=== PATIENT | male | born 1965 | race Caucasian/White ===

== ENCOUNTER 2021-09-04 09:42 | Day surgery (SDC) | payer BC ==
[2021-09-02 13:21] LABS: Potassium 5.1 mmol/L (3.5-5.1)
--- NOTE | 2021-09-03 07:53 | EKG ---
Test Date: 2021-09-02 Test Time: 11:49:01 Dish Technician: CATRACHO MEASUREMENT RESULTS: Intervals: Rate: 58 NJ: 150 QRSD: 92 QT: 384 QTc: 376 [place]: P: 69 NJ: 150 QRS: -64 T: 56 INTERPRETIVE STATEMENTS: Sinus bradycardia Left anterior fascicular block Abnormal ECG No previous ECG available for comparison Electronically Signed On 09-03-21 07:52:52 CDT by Emeterio Valerio
[2021-09-04] MEDS ORDERED: Ringers Lactate 1,000 ML IV ONE ×2 (09:52→14:01)
[2021-09-04] MEDS ORDERED: CEFAZOLIN/SWI 2gm 2 GM/20 ML SYR ONE (09:52)
[2021-09-04] MEDS ORDERED: propofoL 200 MG/20 ML VIAL IV ONE (13:27)
[2021-09-04] MEDS ORDERED: MIDAZOLAM HCL 2 MG/2 ML INJ ONE (13:27)
[2021-09-04] MEDS ORDERED: LIDOCAINE 1% MPF 5 ML VIAL ONE (13:27)
[2021-09-04] MEDS ORDERED: FENTANYL CITR 100 MCG/2 ML ONE (13:27)
[2021-09-04] MEDS ORDERED: BUPIVACAINE 0.25% PF 10 ML VIAL ONE (13:46)
[2021-09-04] MEDS ORDERED: dexAMETHasone 10 MG/ML VIAL ONE (14:17)
[2021-09-04] MEDS ORDERED: KETOROLAC 30 MG/ML INJ ONE (14:17)
--- NOTE | 2021-09-04 15:13 | P.OP ---
Preoperative diagnosis: LEFT inguinal Hernia Postoperative diagnosis: LEFT inguinal Hernia Primary procedure: Open LEFT inguinal Hernia repair with mesh Anesthesia: GETA + Local Estimated blood loss: <2cc Specimen: cord lipoma Findings: indirect inguinal hernia - reducible Complications: None Implants: Bard Perfix Hernia plug and patch - medium Transferred to: Recovery Room Condition: Good
[2021-09-04] MEDS ORDERED: ONDANSETRON 4 MG/2 ML VIAL ONE (15:14)
[2021-09-04 16:50] VITALS: BP 124/62; TEMP 97.4
[2021-09-04 17:06] VITALS: O2SAT 97
--- NOTE | 2021-09-05 02:57 | OP ---
Date of Procedure: 09/04/2021 Surgeon: Mina Regalado MD, Preoperative Diagnosis: Left inguinal hernia. Postoperative Diagnosis: Left inguinal hernia. Procedure Performed: Open left inguinal hernia repair with mesh. Anesthesia: General endotracheal plus local with 0.25% Marcaine. Estimated Blood Loss: Less than 2 cc. Specimen: Cord lipoma. Findings: Indirect inguinal hernia, which is reducible. Complications: None. Implants: Bard PerFix hernia plug and patch hernia repair system medium size. Disposition: Patient was transferred to the recovery room in good condition. Procedure In Detail: After informed consent was obtained, the patient was brought to the operating r oom, prepped and draped in the usual sterile fashion. After adequate anesthesia was achieved, an are a of the left inguinal region was then anesthetized with 0.25% Marcaine, sharply incised, and dissect ion continued using electrocautery down through the Camper fat and Eleanor fascia to expose the auto phone installer al oblique aponeurosis. External oblique aponeurosis was opened at this point sharply with a 15 blad e. I then opened in its entirety distally and proximally using Metzenbaum scissors, protecting the i lioinguinal nerve throughout. I then dissected down to expose the spermatic cord structures. This w as encircled with a [place] drain. At this point, I dissected down to the deep inguinal ring and ult imately found that there was an indirect inguinal hernia emanating from the medial aspect of this are a. I dissected the spermatic cord structures free from the hernia sac at this point and removed the cord lipoma, this was sent for pathologic examination. After I completely reduced the hernia sac int o the preperitoneal space and imbricated the sac, I then brought a medium-sized Bard PerFix plug into the field after hydration and placed it in the preperitoneal space. At this point, it was secured c ircumferentially around with 0 PDS suture with 3 sutures circumferentially around with good mesh plac ement. At this point, I sized the hernia patch appropriately and after sizing the patch appropriatel y and trimming it, I secured it to the pubic tubercle on medial aspect and then formally on the media l and lateral shelving edges of the internal oblique aponeurosis and the underside of the inguinal li gament. After this was secured using 2-0 PDS suture, I then irrigated the area copiously and dried i t up until it was completely dried with laparotomy pads. At this point, I then closed the external o blique aponeurosis in a running fashion with a 3-0 Vicryl suture with good apposition of the tissues. I then closed the deep dermal layer with same set 3-0 Vicryl suture in an interrupted fashion. The skin was closed with 4-0 Monocryl in a running fashion, Dermabond was placed over the top. The noman ent tolerated the procedure well without evidence of complication, transferred to PACU in good condit ion. All counts were correct at the end of the case. TANG/KIP Voice ID: [id number] Report ID: [id number]
== END 2021-09-04 17:20 | disposition home or self-care (01) ==
LOC: OR 09:42
PROVIDERS: ATTEND Surgery
PROC: 0YU60JZ Supplement Left Inguinal Region with Synthetic Substitute, Open Approach (ICD-10-PCS; principal; 2021-09-04 12:15)
DX: K40.90 Unilateral inguinal hernia, without obstruction or gangrene, not specified as recurrent (principal); Z20.822 Contact with and (suspected) exposure to COVID-19
CPT/HCPCS: 93005; 80048; 36415; 88302; 49505; U0003; J2704; J2250; J3010; J1100; J0690; J7120 ×2; J2405

== ENCOUNTER 2024-05-26 06:44 | Emergency (ER) | payer BC ==
[2024-05-26] MEDS ORDERED: FAMOTIDINE 20 MG/2 ML VIAL IV ONE (07:03)
[2024-05-26] MEDS ORDERED: FOLIC ACID 5 MG/ML VIAL ONE (07:03)
[2024-05-26] MEDS ORDERED: ASPIRIN 81 MG CHEWABLE TABLET ONE (07:03)
[2024-05-26] MEDS ORDERED: NA CHLORIDE 0.9% 1,000 ML ONE (07:04)
[2024-05-26 07:21] LABS: Absolute Eosinophils 0.1 K/uL (0-0.5); Absolute Lymphocytes (CBC) 1.9 K/uL (0.7-4.9); Absolute Monocytes 0.7 K/uL (0.1-1.3); Absolute Neutrophil 5.7 K/uL (1.8-8.0); Basophils % 0.5 % (0-1.3); Eosinophils % 1.4 % (0-4.4); Hematocrit 44.3 % (39.6-49.0); Hemoglobin 15.2 g/dL (13.6-17.9); Lymphocytes % 22.1 % (15.3-44.8); MCHC 34.3 g/dL (32.0-36.0); MCV 87.4 fL (80-100); MPV 8.3 fL (7.6-11.3); Monocytes % 8.2 % (3.3-12.3); Neutrophils % 67.8 % (41.7-73.7); Platelets 273 thou/uL (152-406); RBC Red Blood Cell Count 5.08 M/uL (4.33-5.43); Red Cell Distribution Width 13.8 % (12.1-15.2)
[2024-05-26 07:27] LABS: PT Prothrombin Time 11.9 SECONDS (9.4-12.5); Protime INR 1.13
[2024-05-26 07:37] LABS: ALT/SGPT 34 U/L (16-61); AST/SGOT 20 U/L (15-37); Albumin 3.8 g/dL (3.4-5.0); Albumin/Globulin Ratio 1.2 (1.1-1.8); Alkaline Phosphatase 43 U/L (45-117); Anion Gap 5.9 mEq/L (5.0-15.0); BUN Blood Urea Nitrogen 17 mg/dL (7-18); Bicarbonate 28 mEq/L (21-32); Bilirubin Direct 0.2 mg/dL (0-0.2); Bilirubin Indirect, Calculated 0.5 mg/dL (0.2-0.8); Bilirubin Total 0.7 mg/dL (0.2-1.0); Globulin 3.2 g/dL (2.3-3.5); Glomerular Filtration Rate 87 ml/min (=/>90); Glucose Level 114 mg/dL (74-106); Magnesium 2.2 mg/dL (1.6-2.4); NT PRO-BNP 56 pg/mL (<125); Potassium 3.9 mEq/L (3.5-5.1); Sodium Level 137 mEq/L (136-145); Troponin High Sensitivity 12.2 pg/mL (<58.9)
[2024-05-26 07:38] LABS: C-Reactive Protein < 2.90 mg/L (<3.00)
--- NOTE | 2024-05-26 07:41 | RAD REPORT ---
EXAM: CT brain without contrast HISTORY: Syncope. COMPARISON: None TECHNIQUE: Multiple contiguous axial images were obtained and a CT of the brain without contrast. Sagittal and coronal reformats were performed. Automated exposure control, adjustment of the mA and/or kV according to patient size, and/or itera tive reconstruction. Unless otherwise specified, incidental findings do not require dedicated imaging follow-u FINDINGS: An intracranial bleed is not seen Ventricles are normal caliber No extra-axial fluid collection noted No significant hypodensity within the brain No fluid within the visualized sinuses or mastoids noted. IMPRESSION: No acute intracranial abnormality noted. If the patient's symptoms persist MRI of the brain would be recommended. from the emergency room was notified at 7:30 AM May 26, 2024
[2024-05-26 07:43] LABS: SARS-CoV-2 Antigen CONTROL BLUE LINE VIS/BG OK; SARS-CoV-2 Antigen Rapid Res Negative (Negative)
[2024-05-26] MEDS ORDERED: MECLIZINE HCL 12.5 MG TAB ONE (07:44)
[2024-05-26] MEDS ORDERED: ONDANSETRON 4 MG/2 ML VIAL ONE (07:44)
--- NOTE | 2024-05-26 07:54 | RAD REPORT ---
EXAMINATION: CTA HEAD CLINICAL INDICATION: Syncope TECHNIQUE: Axial CT images were obtained through the head after 100 cc Isovue-370 intravenous contras t utilizing angiographic protocol with 3D post-processing (maximum intensity projection images, volume rendered images and/or shaded surface rendered images). One or more of the following dose red uction techniques were used: Automated exposure control, adjustment of the mA and/or kV according to patient size, and/or iterative reconstruction. Unless otherwise specified, incidental findings do not require dedicated imaging follow-up. COMPARISON: None FINDINGS: Distal internal carotid, anterior cerebral, middle cerebral and posterior cerebral arteries do not d emonstrate a significant stenosis The basilar artery is small origin right and left posterior cerebral arteries An aneurysm not noted. 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
--- NOTE | 2024-05-26 07:55 | RAD REPORT ---
EXAMINATION: Neck Angio CLINICAL INDICATION: Syncope TECHNIQUE: Axial CT images were obtained from the aortic arch to the skull base after intravenous adm inistration of 100 cc Isovue-370 utilizing angiographic protocol. Multiplanar reformats, as well as 3D post-processing (maximum intensity projection images, volume rendered images and/or shaded surface rendered images) were generated and reviewed. One or more of the following dose reduction techniques were used: Automated exposure control, adjustment of the mA and/or kV according to patient size, and/or iterative reconstruction. Unless otherwise specified, incidental findings do not require dedicated imaging follow-up. COMPARISON: No prior exam. FINDINGS: The visualized aortic arch and great vessels do not demonstrate a significant abnormality Common carotid, internal carotid and external carotid arteries bilaterally unremarkable Vertebral arteries are somewhat small. No abnormality noted. No significant stenosis noted. A dissection is not seen. Methods for NASCET criteria: Mild stenosis, 0% to 49%; Moderate stenosis 50% to 69%; Severe stenosis, 70% to 99% IMPRESSION: Bilateral hypoplasia vertebral arteries No acute vascular abnormality displayed
--- NOTE | 2024-05-26 07:56 | RAD REPORT ---
Procedure: Chest Single View HISTORY: Cough COMPARISON: none FINDINGS: The lungs appear clear of acute infiltrate. No significant pleural effusion noted. The heart is normal size. Old right clavicular fracture IMPRESSION: No acute abnormality is displayed.
--- NOTE | 2024-05-26 09:12 | ER ---
Nurse's Notes [facility] Name: Satya Marquis Age: 59 yrs Sex: Male : 1965 Arrival Date: 05/26/2024 Time: 06:44 Bed 6 Private MD: Diagnosis: Benign paroxysmal vertigo, unspecified ear Presentation: 05/26 06:52 Chief complaint: EMS states: was toned out for syncopal episode. when ems arrived on al5 seen, patient was found unresponsive and in the prone position. patient was experiencing weakness with ems. patient admits to dizziness prior to the syncopal episode. Coronavirus screen: cough unrelated to allergies. Ebola Screen: No symptoms or risks identified at this time. No acute neurological deficit is noted. The patients blood glucose was checked before arriving to the hospital and was found to be normal. Initial Sepsis Screen: Does the patient meet any 2 criteria? No. Patient's initial sepsis screen is negative. Does the patient have a suspected source of infection? No. Patient's initial sepsis screen is negative. Risk Assessment: Do you want to hurt yourself or someone else? Patient reports no desire to harm self or others. Onset of symptoms was May 26, 2024. Care prior to arrival: IV initiated. 20 GA, in the right antecubital area, Glucose check: 139. 06:52 Method Of Arrival: EMS: [facility] al5 06:52 Acuity: MARS 3 al5 Triage Assessment: 07:00 The onset of the patients symptoms was May 26, 2024 at 04:00. General: Appears in al5 no apparent distress. comfortable, Behavior is calm, cooperative. Pain: Denies pain. EENT: No signs and/or symptoms were reported regarding the EENT system. Neuro: Level of Consciousness is awake, alert, obeys commands, Oriented to person, place, time, situation, Reports dizziness, prior to syncopal episode. Neuro: Public Affairs Director are equal bilaterally Moves all extremities. Full function Gait is steady, Speech is normal, Facial symmetry appears normal. Cardiovascular: Reports syncope, Capillary refill < 3 seconds Patient's skin is warm and dry. Respiratory: Airway is patent Respiratory effort is even, unlabored, Respiratory pattern is regular, symmetrical. GI: No signs and/or symptoms were reported involving the gastrointestinal system. Abdomen is flat, non-distended. : No signs and/or symptoms were reported regarding the genitourinary system. Derm: Skin is intact, is healthy with good turgor, Skin is pink, warm \\T\\ dry. normal. Musculoskeletal: No signs and/or symptoms reported regarding the musculoskeletal system. Stroke Activation: Physician: ED Attending; Name: ; Notified At: ; Arrived At: Physician: Mid-Level Provider; Name: ; Notified At: ; Arrived At: Physician: [not used]; Name: ; Notified At: ; Arrived At: Physician: [not used]; Name: ; Notified At: ; Arrived At: Physician: [not used]; Name: ; Notified At: ; Arrived At: 06:52 n/a al5 Historical: - Allergies: 06:58 No Known Allergies; macario 06:58 No Known Allergies; al5 - PMHx: 06:58 Hypercholesterolemia; al5 - PSHx: 06:58 Appendectomy; hernia repair; al5 - Immunization history:: Adult Immunizations up to date. - Infectious Disease History:: Denies. - Family history:: not pertinent. - Social history:: Smoking status: Patient denies any tobacco usage or history of. Screenin:03 [facility] ED Fall Risk Assessment (Adult) History of falling in the last 3 months, al5 including since admission No falls in past 3 months (0 pts) Confusion or Disorientation No (0 pts) Intoxicated or Sedated No (0 pts) Impaired Gait No (0 pts) Mobility Assist Device Used No (0 pt) Altered Elimination No (0 pt) Score/Fall Risk Level 0 - 2 = Low Risk Oriented to surroundings, Maintained a safe environment, Hourly rounding (assess needs \\T\\ fall precautionary measures) done. Abuse screen: Denies threats or abuse. Denies injuries from another. Nutritional screening: No deficits noted. Tuberculosis screening: No symptoms or risk factors identified. Assessment: 07:02 VAN Scoring: Arm Drift: Patients demonstrates NO arm weakness. Patient is VAN Negative. al5 Visual Disturbance: No visual disturbance noted. Aphasia: No aphasia noted. Neglect: No neglect noted. V[place]ant Swallow Protocol Exclusion Criteria: Exclusion Criteria Result: Proceed Brief Cognitive Screen What is your name? Normal, Where are you right now? Normal, What year is it? Normal. Oral Mechanism Examination Facial Symmetry: Normal, Motion: Normal, Lip Closure: Normal, Oral Mechanism Result: Normal. [place] Swallow Protocol 3 oz Water Swallow Challenge: Pt able to drink all water without stopping, coughing, choking or throat clearing: Yes Result: PASS Notified: Osmar Mera MD. TNKase (Tenecteplase) Screening: Not Applicable. Reassessment: see triage assessment. 07:03 General: Appears comfortable, Behavior is calm, cooperative. Pain: Denies pain. Neuro: aa5 Level of Consciousness is awake, alert, obeys commands, Oriented to person, place, time, situation, Public Affairs Director are equal bilaterally Moves all extremities. Speech is normal, Facial symmetry appears normal, Reports mild dizziness at this time. Pt states "I remember I woke up with the room spinning and I got up and I just remember collapsing", pt's son states "I heard a noise in the hallway and he just passed out in my arms" . Cardiovascular: Heart tones S1 S2 present Rhythm is sinus rhythm. Respiratory: Reports slight cough since yesterday. Airway is patent Respiratory effort is even, unlabored, Respiratory pattern is regular, symmetrical. GI: Abdomen is round non-distended, Bowel sounds present X 4 quads. Abd is soft and non tender X 4 quads. Patient currently denies nausea, vomiting. : No signs and/or symptoms were reported regarding the genitourinary system. EENT: Reports sore throat since yesterday . Derm: Skin is pink, warm \\T\\ dry. Musculoskeletal: Range of motion: intact in all extremities. 07:47 Reassessment: Patient is alert, oriented x 3, equal unlabored respirations, skin aa5 warm/dry/pink. 08:30 Reassessment: Patient is alert, oriented x 3, equal unlabored respirations, skin aa5 warm/dry/pink. Patient states feeling better. 09:00 Reassessment: Patient is alert, oriented x 3, equal unlabored respirations, skin aa5 warm/dry/pink. MD at bedside . Vital Signs: 06:52 BP 156 / 92; Pulse 65; Resp 16; Temp 97.5; Pulse Ox 100% on R/A; Weight 83.91 kg; al5 Height 5 ft. 7 in. ; Pain 0/10; 07:50 BP 133 / 72; Pulse 54; Resp 16 S; Pulse Ox 96% on R/A; aa5 08:55 BP 125 / 74; Pulse 55; Resp 18 S; Pulse Ox 99% on R/A; aa5 09:07 BP 120 / 79; Pulse 54; Resp 16; Pulse Ox 99% ; ko1 06:52 Body Mass Index 28.97 (83.91 kg, 170.18 cm) al5 06:52 Pain Scale: Adult al5 NIH Stroke Scale Scores: 06:54 NIHSS Score: 0 macario 07:02 NIHSS Score: 0 al5 ED Course: 06:45 Patient arrived in ED. jj6 06:46 Osmar Mera MD is Attending Physician. [facility] 06:55 Triage completed. al5 06:59 Arm band placed on right wrist. Patient placed in the treatment room, on a stretcher, al5 in view of staff members, on pulse oximetry. 07:01 Basic Metabolic Panel Sent. ko1 07:01 CBC with Diff Sent. ko1 07:01 LFT's Sent. ko1 07:01 Magnesium Sent. ko1 07:01 NT PRO-BNP Sent. ko1 07:01 PT-INR Sent. ko1 07:01 Troponin HS Sent. ko1 07:03 Patient has correct armband on for positive identification. Bed in low position. Call al5 light in reach. Side rails up X2. Provided Education on: plan of care. 07:03 No provider procedures requiring assistance completed. Maintain EMS IV. Dressing al5 intact. Good blood return noted. Site clean \\T\\ dry. Gauge \\T\\ site: 20G RAC. Flushed with 10 mL NS. 07:03 Initial lab(s) drawn, by me, sent to lab. aa5 07:05 COVID swab sent to lab. Flu and/or RSV swab sent to lab. Strep swab sent to lab. aa5 07:10 Attending Physician role handed off by Osmar Mera MD rt 07:10 Blaine Arguello MD is Attending Physician. rt 07:11 Client placed on continuous cardiac and pulse oximetry monitoring. NIBP monitoring ko1 applied. site monitor on. Door closed. Noise minimized. Lights dimmed. Warm blanket given. Pillow given. 07:11 Initial lab(s) drawn, by ED staff, sent to lab. EKG done, by ED staff, reviewed by Blaine Arguello MD. 07:15 Halina Bundy, RN is Primary Nurse. aa5 07:31 CT Stroke Brain w/o Contrast In Process Unspecified. EDMS 07:31 CT Head Angio In Process Unspecified. EDMS 07:31 CT Neck Angio In Process Unspecified. EDMS 07:43 XRAY Chest (1 view) In Process Unspecified. EDMS 09:07 IV discontinued, intact, bleeding controlled, No redness/swelling at site. Pressure ko1 dressing applied. 09:10 Lida Rosenberg MD is Referral Physician. rt Administered Medications: 07:11 Drug: foLIC Acid IVPB 1 mg IVPB once Route: IVPB; Site: right antecubital; ko1 07:30 Follow up: Response: No adverse reaction; IV Status: Completed infusion; IV Intake: ko1 0.2ml 07:11 Drug: NS 0.9% IV 1000 ml IV at 1000 ml once; to be given as a bolus over 60 minutes ko1 Route: IV; Rate: 1000 ml; Site: right antecubital; 08:30 Follow up: Response: No adverse reaction; IV Status: Completed infusion; IV Intake: ko1 1000ml 07:11 Drug: Aspirin PO Chewable Tablet 324 mg PO once; 81 mg tablets x [address] stroke ko1 NEGATIVE Route: PO; 07:47 Follow up: Response: No adverse reaction aa5 07:11 Drug: Famotidine IVP 20 mg IVP once; dilute with 10 mL 0.9% NaCl; give over 2 minutes ko1 Route: IVP; Site: right antecubital; 07:47 Follow up: Response: No adverse reaction aa5 07:23 CANCELLED (Duplicate Order): [id number] mg PO once aa5 07:47 Drug: Meclizine PO 50 mg PO once Route: PO; aa5 08:57 Follow up: Response: No adverse reaction aa5 07:47 Drug: Ondansetron IVP 4 mg IVP once; over 2 minutes Route: IVP; Site: right antecubital;aa5 07:55 Follow up: Response: No adverse reaction aa5 Medication: 07:03 VIS not applicable for this client. al5 Intake: 07:30 IV: 0ml; Total: 0ml. ko1 08:30 IV: 1000ml; Total: 1000ml. ko1 Outcome: 09:07 Condition: improved ko1 09:11 Discharge ordered by . rt 09:17 Discharged to home via wheelchair, with family, ko1 09:17 Discharge instructions given to patient, family, Instructed on discharge instructions, follow up and referral plans. medication usage, Demonstrated understanding of instructions, follow-up care, medications, Prescriptions given X 1, 09:17 Patient left the ED. ko1 NIH Stroke Scale - NIH Stroke Score Date: 05/26/2024 Time: 06:54 Total Score = 0 10. Dysarthria (speech clarity - read or repeat words) - 0(Normal) 11. Extinction and Inattention (visual/tactile/auditory/spatial/personal) - 0(No abnormality) 1a. Level of Consciousness (LOC) - 0(Alert) 1b. Level of Consciousness (LOC) (Month \\T\\ Age) - 0(Both) 1c. LOC Commands (Open \\T\\ Closes Eyes/Job Hand) - 0(Both) 2. Best Gaze (Lateral Gaze Paresis) - 0(Normal) 3. Visual Field Loss - 0(No visual loss) 4. Facial Palsy - 0(Normal) 5a. Left Arm: Motor (10-second hold) - 0(No drift) 5b. Right Arm: Motor (10-second hold) - 0(No drift) 6a. Left Leg: Motor (5-second hold - always test supine) - 0(No drift) 6b. Right Leg: Motor (5-second hold - always test supine) - 0(No drift) 7. Limb Ataxia (finger/nose \\T\\ heel/mendez - test with eyes open) - 0(Absent) 8. Sensory Loss (pinprick arms/legs/face) - 0(Normal) 9. Best Language: Aphasia (description/naming/reading) - 0(No aphasia) Initials: [facility] NIH Stroke Scale - NIH Stroke Score Date: 05/26/2024 Time: 07:02 Total Score = 0 10. Dysarthria (speech clarity - read or repeat words) - 0(Normal) 11. Extinction and Inattention (visual/tactile/auditory/spatial/personal) - 0(No abnormality) 1a. Level of Consciousness (LOC) - 0(Alert) 1b. Level of Consciousness (LOC) (Month \\T\\ Age) - 0(Both) 1c. LOC Commands (Open \\T\\ Closes Eyes/Job Hand) - 0(Both) 2. Best Gaze (Lateral Gaze Paresis) - 0(Normal) 3. Visual Field Loss - 0(No visual loss) 4. Facial Palsy - 0(Normal) 5a. Left Arm: Motor (10-second hold) - 0(No drift) 5b. Right Arm: Motor (10-second hold) - 0(No drift) 6a. Left Leg: Motor (5-second hold - always test supine) - 0(No drift) 6b. Right Leg: Motor (5-second hold - always test supine) - 0(No drift) 7. Limb Ataxia (finger/nose \\T\\ heel/mendez - test with eyes open) - 0(Absent) 8. Sensory Loss (pinprick arms/legs/face) - 0(Normal) 9. Best Language: Aphasia (description/naming/reading) - 0(No aphasia) Initials: al5 Signatures: Dispatcher [employer] Osmar Duenas MD MD cha Calderon, Audri RN RN aa5 Xena Guerreroj6 Priscila Dunn RN RN ko1 Blaine Arguello MD MD rt Veronica Arzate RN RN al5
--- NOTE | 2024-05-26 09:12 | EDPHYS ---
Physician Documentation [facility] Name: Satya Marquis Age: 59 yrs Sex: Male : 1965 Arrival Date: 05/26/2024 Time: 06:44 Bed 6 Private MD: ED Physician Blaine Arguello HPI: 05/26 06:53 This 59 yrs old Male presents to ER via Unassigned with complaints of High macario Blood Pressure, Numbness, Weakness, Syncope. 06:53 The patient has elevated blood pressure and discovered this at home. Onset: The macario symptoms/episode began/occurred this morning. Modifying factors: The symptoms are aggravated by activity, The symptoms are alleviated by remaining still. Associated signs and symptoms: The patient has no apparent associated signs or symptoms. 06:54 The patient's problem is reported as weakness, that is generalized, DIZZY. Duration: macario The episode is continuous. The symptoms are alleviated by nothing. The symptoms are aggravated by nothing. The patient presents with generalized weakness, lightheadedness, vertigo. Context: occurred occurred while the patient was just prior to the episode the patient experienced WENT TO BED AT 930 , MILD SORE THROAT , AWOKE AT 4AM DIZZY. Historical: - Allergies: 06:58 No Known Allergies; macario 06:58 No Known Allergies; al5 - PMHx: 06:58 Hypercholesterolemia; al5 - PSHx: 06:58 Appendectomy; hernia repair; al5 - Immunization history:: Adult Immunizations up to date. - Infectious Disease History:: Denies. - Family history:: not pertinent. - Social history:: Smoking status: Patient denies any tobacco usage or history of. ROS: 06:54 Constitutional: Negative for fever, chills, and weight loss, Eyes: Negative for injury, macario pain, redness, and discharge, ENT: Negative for injury, pain, and discharge, Neck: Negative for injury, pain, and swelling, Cardiovascular: Negative for chest pain, palpitations, and edema, Respiratory: Negative for shortness of breath, cough, wheezing, and pleuritic chest pain, Abdomen/GI: Negative for abdominal pain, nausea, vomiting, diarrhea, and constipation, Back: Negative for injury and pain, : Negative for injury, bleeding, discharge, and swelling, MS/Extremity: Negative for injury and deformity, Skin: Negative for injury, rash, and discoloration, Psych: Negative for depression, anxiety, suicide ideation, homicidal ideation, and hallucinations, Allergy/Immunology: Negative for hives, rash, and allergies, Endocrine: Negative for neck swelling, polydipsia, polyuria, polyphagia, and marked weight changes, Hematologic/Lymphatic: Negative for swollen nodes, abnormal bleeding, and unusual bruising, 06:54 Neuro: Positive for dizziness, numbness, weakness, Exam: 06:54 Constitutional: This is a well developed, well nourished patient who is awake, alert, macario and in no acute distress. Head/Face: Normocephalic, atraumatic. Eyes: Pupils equal round and reactive to light, extra-ocular motions intact. Lids and lashes normal. Conjunctiva and sclera are non-icteric and not injected. Cornea within normal limits. Periorbital areas with no swelling, redness, or edema. ENT: Nares patent. No nasal discharge, no septal abnormalities noted. Tympanic membranes are normal and external auditory canals are clear. Oropharynx with no redness, swelling, or masses, exudates, or evidence of obstruction, uvula midline. Mucous membranes moist. Neck: Trachea midline, no thyromegaly or masses palpated, and no cervical lymphadenopathy. Supple, full range of motion without nuchal rigidity, or vertebral point tenderness. No Meningismus. Chest/axilla: Normal chest wall appearance and motion. Nontender with no deformity. No lesions are appreciated. Cardiovascular: Regular rate and rhythm with a normal S1 and S2. No gallops, murmurs, or rubs. Normal PMI, no JVD. No pulse deficits. Respiratory: Lungs have equal breath sounds bilaterally, clear to auscultation and percussion. No rales, rhonchi or wheezes noted. No increased work of breathing, no retractions or nasal flaring. Abdomen/GI: Soft, non-tender, with normal bowel sounds. No distension or tympany. No guarding or rebound. No evidence of tenderness throughout. Back: No spinal tenderness. No costovertebral tenderness. Full range of motion. Male : Normal genitalia with no discharge or lesions. Skin: Warm, dry with normal turgor. Normal color with no rashes, no lesions, and no evidence of cellulitis. MS/ Extremity: Pulses equal, no cyanosis. Neurovascular intact. Full, normal range of motion., bilateral aka Neuro: Awake and alert, GCS 15, oriented to person, place, time, and situation. Cranial nerves II-XII grossly intact. Motor strength 5/5 in all extremities. Sensory grossly intact. Cerebellar exam normal. Normal gait. Psych: Awake, alert, with orientation to person, place and time. Behavior, mood, and affect are within normal limits. 06:54 Musculoskeletal/extremity: Circulation is intact in all extremities. Sensation intact. Compartment Syndrome exam of affected extremity: is normal. DVT Exam: No signs of deep vein thrombosis. no pain, no swelling, no tenderness, negative Homans' sign noted on exam, no appreciated bluish discoloration, no erythema, no increased warmth, 06:54 Neuro: Orientation: is normal, appropriate for stated age, no acute changes, Mentation: is normal, appropriate for stated age, no acute changes, Memory: is normal, appropriate for stated age, no acute changes, Cranial nerves: grossly normal, is grossly normal based on the patient's age, no acute changes, Cerebellar function: is grossly normal, is grossly normal based on the patient's age, no acute changes, Motor: no acute changes, moves all fours, strength is 5/5 in all extremities, Sensation: is normal, no obvious gross deficits, appropriate no acute changes, Gait: not tested. Deep tendon reflexes are 2+ (normal) in the bilateral brachioradialis, bicep, tricep and patellar and Achilles tendons, Babinski testing is normal, seizure activity, is not displayed by the patient, 07:01 Radiologist reports: SEE REPORT macario 07:53 ECG was reviewed by the Attending Physician. rt Vital Signs: 06:52 BP 156 / 92; Pulse 65; Resp 16; Temp 97.5; Pulse Ox 100% on R/A; Weight 83.91 kg; al5 Height 5 ft. 7 in. ; Pain 0/10; 07:50 BP 133 / 72; Pulse 54; Resp 16 S; Pulse Ox 96% on R/A; aa5 08:55 BP 125 / 74; Pulse 55; Resp 18 S; Pulse Ox 99% on R/A; aa5 09:07 BP 120 / 79; Pulse 54; Resp 16; Pulse Ox 99% ; ko1 06:52 Body Mass Index 28.97 (83.91 kg, 170.18 cm) al5 06:52 Pain Scale: Adult al5 NIH Stroke Scale Scores: 06:54 NIHSS Score: 0 macario 07:02 NIHSS Score: 0 al5 MDM: 06:46 Medical Screening Exam initiated macario 06:58 TNKase (Tenecteplase) Screening: Contraindications: Patient reports onset of signs and macario symptoms of stroke greater than 6 hours ago: No. Data reviewed: vital signs, nurses notes, EMS record, lab test result(s), EKG, radiologic studies, CT scan, plain films. Consideration of Admission/Observation Escalation of care including admission/observation considered. I considered the following discharge prescriptions or medication management in the emergency department Medications were administered in the Emergency Department. See MAR. Independent interpretation of the following test(s) in the Emergency Department EKG: See my EKG interpretation above. Test considered but Not performed: MRI: MRI, NO AVAILABLE. Historians other than the Patient: EMS: EMS WELL INFORMED. Daughter/Son: SON WELL INFORMED. Care significantly affected by the following chronic conditions: HIGH CHOLESTEROL. Counseling: I had a detailed discussion with the patient and/or guardian regarding the historical points, exam findings, and any diagnostic results supporting the discharge/admit diagnosis, the presence of at least one elevated blood pressure reading (>120/80) during this emergency department visit, lab results, radiology results. 09:12 ED course: Patient presents to the ED with dizziness, described as vertiginous. This rt occurred when the patient turned over. Symptoms have resolved with meclizine. I suspect benign positional vertigo. Low suspicion for posterior CVA. He is ambulatory in the ED, workup is negative. Patient is comfortable discharge, precautions discussed. 05/26 06:53 Order name: Strep macario 05/26 06:53 Order name: Basic Metabolic Panel; Complete Time: 07:57 macario 05/26 06:53 Order name: CBC with Diff; Complete Time: 07:57 macario 05/26 06:53 Order name: LFT's; Complete Time: 07:57 05/26 06:53 Order name: Magnesium; Complete Time: 07:57 05/26 06:53 Order name: NT PRO-BNP; Complete Time: 07:57 05/26 06:53 Order name: PT-INR; Complete Time: 07:57 05/26 06:53 Order name: Troponin HS; Complete Time: 07:57 [facility] 05/26 06:53 Order name: CRP; Complete Time: 07:57 [facility] 05/26 06:53 Order name: Flu; Complete Time: 07:57 [facility] 05/26 06:53 Order name: SARS RAPID; Complete Time: 07:57 [facility] 05/26 07:46 Order name: Throat Culture [facility] 05/26 07:51 Order name: CREATININE WHOLE BLOOD; Complete Time: 07:57 [facility] 05/26 06:53 Order name: XRAY Chest (1 view); Complete Time: 07:57 [facility] 05/26 06:53 Order name: CT Stroke Brain w/o Contrast; Complete Time: 07:57 [facility] 05/26 06:53 Order name: CT Head Angio; Complete Time: 07:57 [facility] 05/26 06:53 Order name: CT Neck Angio; Complete Time: 07:57 [facility] 05/26 06:53 Order name: Cardiac monitoring; Complete Time: 07:00 [facility] 05/26 06:53 Order name: EKG - Nurse/Tech; Complete Time: 07:11 [facility] 05/26 06:53 Order name: IV Saline Lock; Complete Time: 07:00 [facility] 05/26 06:53 Order name: Labs collected and sent; Complete Time: 07:00 [facility] 05/26 06:53 Order name: O2 Per Protocol; Complete Time: 07:00 [facility] 05/26 06:53 Order name: O2 Sat Monitoring; Complete Time: 07:00 [facility] EC:53 Rate is 56 beats/min. Rhythm is regular, Sinus bradycardia with No ectopy, lafb. Left rt axis deviation noted. TN interval is normal. QRS interval is normal. QT interval is normal. No Q waves. No ST changes noted. Interpreted by me. Administered Medications: 07:11 Drug: foLIC Acid IVPB 1 mg IVPB once Route: IVPB; Site: right antecubital; ko1 07:30 Follow up: Response: No adverse reaction; IV Status: Completed infusion; IV Intake: ko1 0.2ml 07:11 Drug: NS 0.9% IV 1000 ml IV at 1000 ml once; to be given as a bolus over 60 minutes ko1 Route: IV; Rate: 1000 ml; Site: right antecubital; 08:30 Follow up: Response: No adverse reaction; IV Status: Completed infusion; IV Intake: ko1 1000ml 07:11 Drug: Aspirin PO Chewable Tablet 324 mg PO once; 81 mg tablets x [address] stroke ko1 NEGATIVE Route: PO; 07:47 Follow up: Response: No adverse reaction aa5 07:11 Drug: Famotidine IVP 20 mg IVP once; dilute with 10 mL 0.9% NaCl; give over 2 minutes ko1 Route: IVP; Site: right antecubital; 07:47 Follow up: Response: No adverse reaction aa5 07:23 CANCELLED (Duplicate Order): [id number] mg PO once aa5 07:47 Drug: Meclizine PO 50 mg PO once Route: PO; aa5 08:57 Follow up: Response: No adverse reaction aa5 07:47 Drug: Ondansetron IVP 4 mg IVP once; over 2 minutes Route: IVP; Site: right antecubital;aa5 07:55 Follow up: Response: No adverse reaction aa5 Disposition Summary: 05/26/24 09:11 Discharge Ordered Notes: Location: Home rt Problem: new rt Symptoms: are resolved rt Condition: Stable rt Diagnosis - Benign paroxysmal vertigo, unspecified ear rt Followup: rt - With: Lida Rosenberg MD - When: 5 - 6 days - Reason: Discharge Instructions: - Discharge Summary Sheet rt - Benign Positional Vertigo rt Forms: - Medication Reconciliation Form rt - Antibiotic Education rt - Prescription Opioid Use rt - Patient Portal Instructions rt - Leadership Thank You Letter rt Prescriptions: - Meclizine 25 mg Oral Tablet - take 1 tablet ORAL route every 8 hours As needed; 30 tablet; Refills: 0, rt Product Selection Permitted NIH Stroke Scale - NIH Stroke Score Date: 05/26/2024 Time: 06:54 Total Score = 0 10. Dysarthria (speech clarity - read or repeat words) - 0(Normal) 11. Extinction and Inattention (visual/tactile/auditory/spatial/personal) - 0(No abnormality) 1a. Level of Consciousness (LOC) - 0(Alert) 1b. Level of Consciousness (LOC) (Month \T\ Age) - 0(Both) 1c. LOC Commands (Open \T\ Closes Eyes/Outdoor Adventure Leader) - 0(Both) 2. Best Gaze (Lateral Gaze Paresis) - 0(Normal) 3. Visual Field Loss - 0(No visual loss) 4. Facial Palsy - 0(Normal) 5a. Left Arm: Motor (10-second hold) - 0(No drift) 5b. Right Arm: Motor (10-second hold) - 0(No drift) 6a. Left Leg: Motor (5-second hold - always test supine) - 0(No drift) 6b. Right Leg: Motor (5-second hold - always test supine) - 0(No drift) 7. Limb Ataxia (finger/nose \T\ heel/mendez - test with eyes open) - 0(Absent) 8. Sensory Loss (pinprick arms/legs/face) - 0(Normal) 9. Best Language: Aphasia (description/naming/reading) - 0(No aphasia) Initials: macario NIH Stroke Scale - NIH Stroke Score Date: 05/26/2024 Time: 07:02 Total Score = 0 10. Dysarthria (speech clarity - read or repeat words) - 0(Normal) 11. Extinction and Inattention (visual/tactile/auditory/spatial/personal) - 0(No abnormality) 1a. Level of Consciousness (LOC) - 0(Alert) 1b. Level of Consciousness (LOC) (Month \T\ Age) - 0(Both) 1c. LOC Commands (Open \T\ Closes Eyes/Outdoor Adventure Leader) - 0(Both) 2. Best Gaze (Lateral Gaze Paresis) - 0(Normal) 3. Visual Field Loss - 0(No visual loss) 4. Facial Palsy - 0(Normal) 5a. Left Arm: Motor (10-second hold) - 0(No drift) 5b. Right Arm: Motor (10-second hold) - 0(No drift) 6a. Left Leg: Motor (5-second hold - always test supine) - 0(No drift) 6b. Right Leg: Motor (5-second hold - always test supine) - 0(No drift) 7. Limb Ataxia (finger/nose \T\ heel/mendez - test with eyes open) - 0(Absent) 8. Sensory Loss (pinprick arms/legs/face) - 0(Normal) 9. Best Language: Aphasia (description/naming/reading) - 0(No aphasia) Initials: al5 Signatures: Dispatcher [employer] Osmar Duenas MD MD cha Calderon, Audri RN RN aa5 Priscila Dunn RN RN ko1 Blaine Arguello MD MD rt Veronica Arzate RN RN al5 Corrections: (The following items were deleted from the chart) 06:54 06:53 BASIC METABOLIC PANEL+C.LAB.BRZ ordered. EDMS EDMS 06:54 06:53 CBC+H.LAB.BRZ ordered. EDMS EDMS 06:54 06:53 HEPATIC FUNCTION+C.LAB.BRZ ordered. EDMS EDMS 06:54 06:53 MAGNESIUM+C.LAB.BRZ ordered. EDMS EDMS 06:54 06:53 PROBNP+C.LAB.BRZ ordered. EDMS EDMS 06:54 06:53 PROTIME (+INR)+COAG.LAB.BRZ ordered. EDMS EDMS 06:54 06:53 Troponin High Sensitivity+C.LAB.BRZ ordered. EDMS EDMS 06:54 06:53 C-REACTIVE PROTEIN+C.LAB.BRZ ordered. EDMS EDMS 06:54 06:53 Influenza Screen (A \T\ B)+BA.LAB.BRZ ordered. EDMS EDMS 06:54 06:53 SARS-COV-2 Antigen Rapid+I.LAB.BRZ ordered. EDMS EDMS 06:54 06:53 Group A Streptococcus Rapid Sc+BA.LAB.BRZ ordered. EDMS EDMS 06:54 06:54 Chest Single View+RAD.RAD.BRZ ordered. EDMS EDMS 06:54 06:54 CT-STROKE BRAIN W/O CONTRAST+CT.RAD.BRZ ordered. EDMS EDMS 06:54 06:54 Head Angio+CT.RAD.BRZ ordered. EDMS EDMS 06:54 06:54 Neck Angio+CT.RAD.BRZ ordered. EDMS EDMS 07:23 07:02 Meclizine PO 50 mg PO once ordered. rt aa5
[2024-05-26 09:23] VITALS: TEMP 97.5
[2024-05-26 09:25] VITALS: O2SAT 99
[2024-05-26 09:26] VITALS: BP 120/79
--- NOTE | 2024-05-30 12:44 | EKG ---
Test Date: 2024-05-26 Test Time: 07:11:28 Insurance Producer: [employer] MEASUREMENT RESULTS: Intervals: Rate: 56 WA: 158 QRSD: 106 QT: 416 QTc: 401 [place]: P: 48 WA: 158 QRS: -62 T: 26 INTERPRETIVE STATEMENTS: Sinus bradycardia with sinus arrhythmia Left anterior fascicular block Abnormal ECG Compared to ECG 09/02/2021 11:49:01 No significant changes Electronically Signed On 05-30-24 12:36:24 [employer] by Orville Steele
== END 2024-05-26 09:17 | disposition home or self-care (01) ==
LOC: ER 06:44
DX: H81.10 Benign paroxysmal vertigo, unspecified ear (principal); R53.1 Weakness; Z11.52 Encounter for screening for COVID-19
CPT/HCPCS: 96365; 96361; 87070; 85025; 80048; 36415; 83735; 85610; 82565; 80076; 87081; 84484; 83880; 86140; 87804 ×2; 70496; 70498; 70450; 71045; 96375; 99285; 87811; Q9967; J8597; J2405; J7030; 93005